=== PATIENT | female | born 1985 | race African-American/Black ===

== ENCOUNTER 2018-12-01 05:08 | Inpatient (IN) | payer OTHER ==
[2018-11-30 08:44] VITALS: BMI 35.6
--- NOTE | 2018-12-01 07:40 | HP ---
Admitting History and Physical - Admission Chief Complaint: Fibroid uterus History of Present Illness: 33 yo Para 0, LMP 11/11/18, with leiomyoma of the uterus, is pre op for abdominal myomectomy. History Source: Patient Limitations to Obtaining History: No Limitations - Past Medical History ...LMP: 11/11/18 ...: No ...Para: 0 - Past Surgical History Past Surgical History: Yes: None - Smoking History Smoking history: Never smoked - Alcohol/Substance Use Hx Alcohol Use: Yes (OCCAS) - Social History Usual Living Arrangement: Yes: Alone History of Recent Travel: No Home Medications - Allergies Allergies/Adverse Reactions: Allergies Allergy/AdvReac Type Severity Reaction Status Date / Time No Known Allergies Allergy Verified 12/01/18 06:56 - Home Medications Home Medications: Ambulatory Orders Oxycodone HCl/Acetaminophen [Percocet 5-325 mg Tablet] 1 - 2 tab PO Q4H PRN #20 tablet MDD 6 12/01/18 Family Disease History - Family Disease History Family History: Unremarkable Review of Systems - Review of Systems Constitutional: reports: No Symptoms Eyes: reports: No Symptoms HENT: reports: No Symptoms Neck: reports: No Symptoms Cardiovascular: reports: No Symptoms Respiratory: reports: No Symptoms Gastrointestinal: reports: No Symptoms Genitourinary: reports: Pain Breasts: reports: No Symptoms Reported Musculoskeletal: reports: No Symptoms Integumentary: reports: No Symptoms Neurological: reports: No Symptoms Psychiatric: reports: No Symptoms Pain Intensity: 3 Physical Examination Vital Signs: Vital Signs Temperature 98.2 F 12/01/18 06:55 Pulse Rate 67 12/01/18 06:55 Respiratory Rate 20 12/01/18 06:55 Blood Pressure 120/68 12/01/18 06:55 O2 Sat by Pulse Oximetry (%) 100 12/01/18 06:50 Constitutional: Yes: Well Nourished Eyes: Yes: Conjunctiva Clear HENT: Yes: Atraumatic Neck: Yes: Supple Cardiovascular: Yes: Regular Rate and Rhythm Respiratory: Yes: Regular Gastrointestinal: Yes: Normal Bowel Sounds Extremities: Yes: WNL Neurological: Yes: Alert, Oriented ...Motor Strength: WNL Psychiatric: Yes: Alert, Oriented Problem List - Problems (1) Leiomyoma of body of uterus Code(s): D25.9 - LEIOMYOMA OF UTERUS, UNSPECIFIED Assessment/Plan Leiomyoma of the uterus Pre op for myomectomy Consent signed Anesthesia to see patient
[2018-12-01] MEDS ORDERED: ceFAZolin SODIUM 1 GM VIAL IVPB ONE ×2 (07:51→10:30)
--- NOTE | 2018-12-01 10:43 | OP ---
Operative Note - Note: Operative Date: 12/01/18 Pre-Operative Diagnosis: Leiomyoma of the uterus Operation: Abdominal hysterectomy Findings: Large fibroid uterus / Adenomyosis Surgeon: Claribel Coats Clinical Documentation Specialist: Denise Friedman Anesthesia: General Specimens Removed: Fibroids / Adenomyosis Estimated Blood Loss (mls): 1,200
[2018-12-01] MEDS ORDERED: IBUPROFEN 800 MG/8 ML IJ IVPB PRN (10:44)
[2018-12-01] MEDS ORDERED: ONDANSETRON 4 MG/2 ML VIAL IVPUSH PRN (10:59)
[2018-12-01] MEDS ORDERED: HYDROmorphone *PCA* 10MG/50ML DISP.SYRIN PCA SCH ×2 (11:00→11:45)
[2018-12-01] MEDS ORDERED: LACTATED RINGERS SOLUTION 1,000 ML IV SCH (11:00)
[2018-12-01] MEDS ORDERED: HYDROmorphone *PCA* 10MG/50ML DISP.SYRIN PCA ONE (11:03)
[2018-12-01] MEDS: HYDROmorphone HCl 2 MG/ML VIAL ONE ×2 (11:05→11:15)
[2018-12-01] MEDS ORDERED: LACTATED RINGERS SOLUTION 1,000 ML/1,000 ML INFUS.BAG IV SCH (11:15)
--- NOTE | 2018-12-01 11:39 | OP ---
Operative Note - Note: Operative Date: 12/01/18 Pre-Operative Diagnosis: Leiomyoma of uterus Operation: Abdominal Myomectomy Post-Operative Diagnosis: Same as Pre-op Surgeon: Claribel Coats Continuous Linter Drier Operator: Denise Friedman Anesthesiologist/PARAPROFESSIONAL AIDE TEACHER: Ricardo Alvarado Anesthesia: General Specimens Removed: uterine fibriods Estimated Blood Loss (mls): 1,300 Drains, Volume Out (mls): 400 ([place]) Blood Volume Replaced (mls): 2 (units PRBC) Fluid Volume Replaced (mls): 3,400 Operative Report Dictated: Yes
--- NOTE | 2018-12-01 11:42 | SURG ---
Surgery Psychological Operations Note Psychological Operations: Denise Friedman PA-C Date of Service: 12/01/18 Diagnosis: Leiomyoma of uterus Procedure: Abdominal myomectomy I was present for the entirety of the operative procedure. For further detail, please refer to operative report. Visit type - Case Type Case Type: Scheduled - Emergency Emergency Visit: No - New patient This patient is new to me today: Yes Date on this admission: 12/01/18
[2018-12-01 14:06] LABS: HEMATOCRIT 28.6 % (32.4-45.2); HEMOGLOBIN 9.6 GM/dL (10.7-15.3); MCH 25.4 pg (25.7-33.7); MCHC 33.6 g/dl (32.0-36.0); MEAN CELL VOLUME 75.5 fl (80-96); MEAN PLT VOLUME 7.8 fl (7.5-11.1); PLATELET COUNT 345 K/MM3 (134-434); RBC 3.79 M/mm3 (3.60-5.2); RDW 19.2 % (11.6-15.6); WHITE BLOOD COUNT 24.7 K/mm3 (4.0-10.0)
[2018-12-01] MEDS: CEFAZOLIN 1 GM/D5W 1 GM/50 ML BAG IVPB SCH (18:12)
[2018-12-01 18:40] LABS: HEMATOCRIT 25.7 % (32.4-45.2); HEMOGLOBIN 8.9 GM/dL (10.7-15.3); MCH 25.9 pg (25.7-33.7); MCHC 34.7 g/dl (32.0-36.0); MEAN CELL VOLUME 74.6 fl (80-96); PLATELET COUNT 274 K/MM3 (134-434); RBC 3.44 M/mm3 (3.60-5.2); RDW 19.3 % (11.6-15.6)
[2018-12-01] MEDS: DEXTROSE 5%-LACTATED RINGERS 1,000 ML IV SCH (21:02)
[2018-12-02] MEDS: CEFAZOLIN 1 GM/D5W 1 GM/50 ML BAG IVPB SCH (02:45)
[2018-12-02] MEDS: DEXTROSE 5%-LACTATED RINGERS 1,000 ML IV SCH (06:33)
[2018-12-02 08:14] LABS: HEMATOCRIT 22.5 % (32.4-45.2); HEMOGLOBIN 7.6 GM/dL (10.7-15.3); MCHC 33.9 g/dl (32.0-36.0); MEAN CELL VOLUME 73.9 fl (80-96); MEAN PLT VOLUME 8.1 fl (7.5-11.1); PLATELET COUNT 266 K/MM3 (134-434); RBC 3.05 M/mm3 (3.60-5.2); RDW 19.4 % (11.6-15.6); WHITE BLOOD COUNT 16.3 K/mm3 (4.0-10.0)
[2018-12-02 08:59] LABS: ALBUMIN 2.8 g/dl (3.4-5.0); ALK PHOS 37 U/L (45-117); ANION GAP 8 MMOL/L (8-16); BILIRUBIN,TOTAL 0.4 mg/dL (0.2-1); BLOOD UREA NITROGEN 7 mg/dL (7-18); CALCIUM 8.4 mg/dL (8.5-10.1); CHLORIDE 105 mmol/L (98-107); CO2 25 mmol/L (21-32); CREATININE 0.8 mg/dL (0.55-1.3); GLUCOSE,RANDOM 132 mg/dL (74-106); POTASSIUM 3.8 mmol/L (3.5-5.1); SGOT/AST 19 U/L (15-37); SGPT/ALT 15 U/L (13-61); SODIUM 139 mmol/L (136-145); TOT PROT 5.4 g/dl (6.4-8.2)
--- NOTE | 2018-12-02 10:02 | PN ---
Progress Note (short form) - Note Progress Note: Post op day#1.S/P Abdominal myomectomy under GA uneventful.Patient stable c/o pain score of 3-4/10 on Dilaudid TUBE HANDLER.So will DC TUBE HANDLER and put patien on PO pain medication.No any anesthesia related problem.Patient DC from the anesthesia care.
--- NOTE | 2018-12-02 11:48 | PN ---
Progress Note (short form) - Note Progress Note: 33 yo Para 0, status post abdominal hysterectomy, seen and evaluated. Doing well. PE : Chest CTA, no rales Abd : Soft, dressing in place, + incision pain. EXT : FROM, NT, no swelling ASS : Status post abdominal myomectomy Stable PO Doxy and Flagyl Analgesia as needed Ambulation D/C Home in am Problem List - Problems (1) Leiomyoma of body of uterus Code(s): D25.9 - LEIOMYOMA OF UTERUS, UNSPECIFIED
[2018-12-02] MEDS: FERROUS SO4 325 MG TABLET (FP) PO SCH ×2 (12:16→19:54)
[2018-12-02] MEDS: oxyCODONE HCL 5 MG TABLET PO PRN ×2 (16:44→20:21)
[2018-12-02] MEDS: DOXYCYCLINE HYCLATE 100 MG CAPSULE PO SCH (17:44)
[2018-12-02] MEDS: metroNIDAZOLE 250 MG TABLET PO SCH (21:54)
[2018-12-03 05:54] VITALS: TEMP 99
--- NOTE | 2018-12-03 08:23 | DS ---
"Physical Examination Vital Signs: Vital Signs Temperature 99 F 12/03/18 05:52 Pulse Rate 100 H 12/03/18 05:52 Respiratory Rate 20 12/03/18 05:52 Blood Pressure 116/68 12/03/18 05:52 O2 Sat by Pulse Oximetry (%) 98 12/01/18 21:00 Constitutional: Yes: Well Nourished Eyes: Yes: Conjunctiva Clear HENT: Yes: Atraumatic Neck: Yes: Supple Cardiovascular: Yes: Regular Rate and Rhythm Respiratory: Yes: Regular Gastrointestinal: Yes: Normal Bowel Sounds Wound/Incision: Yes: Clean/Dry, Steri Strips (intact) Neurological: Yes: Alert, Oriented ...Motor Strength: WNL Psychiatric: Yes: Alert, Oriented Labs: CBC, BMP 12/02/18 07:30 12/02/18 07:30 Discharge Summary Reason For Visit: LEIOMYOMA OF UTERUS Current Active Problems Leiomyoma of body of uterus (Acute) Status post myomectomy (Acute) Procedures: Principal: Abdominal myomectomy Hospital Course: Patient is status post myomectomy. She received 2 units of blood in the operating room. Post op, she continued the antibiotic but refused additional units of blood. Condition: Good - Instructions Diet, Activity, Other Instructions: Director Employee Safety And Health discharge instructions Physical activity Resume your normal everyday activity as tolerated no heavy lifting or exercise until seen by your surgeon. You may walk unlimited young of and climb stairs. You may resume driving the car when you feel safe and comfortable behind the wheel. No sexual activity as instructed by your surgeon. Wound care If you have a bandage, leave it on, and keep dry for 72 hours. After that time discard the outer bandage and shower but do not submerge the incisions. If they are tapes on the skin under the out of bandage leave them in place, you can shower with them on. They will peel off in the next 7 to 10 days. Do Not Peel them off. Do not apply ointments or lotions to incision. Diet There are no dietary restrictions. Eat healthy, high-fiber foods. Drink 6 to 8 glasses of liquid each day. This will assist in keeping your bowels are regular. Pain management You may take Tylenol or acetaminophen or Ibuprofen (for example, Motrin, Advil etc.) from my pain prescription medication is ordered should be taken as prescribed for moderate to severe pain. Call Dr. Coats for any of the following: Severe pain not relieved by medication Fever of 101 or higher Excessive bleeding or drainage on dressing Inability to urinate If you experience any chest pain or shortness of breath please seek emergency treatment immediately. Call the office to confirm your post op appointment. [place] prescription monitoring program report was requested by: Denise Friend | Reference #: [id number] Disposition: HOME - Home Medications Comprehensive Discharge Medication List: Ambulatory Orders Oxycodone HCl/Acetaminophen [Percocet 5-325 mg Tablet] 1 - 2 tab PO Q4H PRN #20 tablet MDD 6 12/01/18"
[2018-12-03] MEDS: metroNIDAZOLE 250 MG TABLET PO SCH (09:15)
[2018-12-03] MEDS: DOXYCYCLINE HYCLATE 100 MG CAPSULE PO SCH (09:15)
[2018-12-03] MEDS: FERROUS SO4 325 MG TABLET (FP) PO SCH (09:16)
[2018-12-03 10:25] VITALS: BP 126/79; PULSE 107
--- NOTE | 2018-12-04 17:12 | PATH ---
Surgical Pathology Report Patient Name: ZOILA YOUNG [facility]. Rec. #: [id number] /Age/Gender: 1985 (Age: 33) / F Account: [id number] Location: [address] [place] [address]/[facility] Taken: 12/01/2018 Received: 12/01/2018 Reported: 12/04/2018 Physicians: Claribel Coats M.D. Specimen(s) Received FIBROID Clinical History Abdominal myoma, fibroid uterus Final Diagnosis FIBRIODS/'ADENOMYOSIS', ABDOMINAL MYOMECTOMY: 874 G LEIOMYOMA(TA) WITH FOCAL DEGENERATIVE CHANGES. Electronically Signed Aleida Parker M.D. Gross Description Received in formalin labeled "fibroids/adenomyosis," is an 874 g aggregate of 2 nodules measuring 6.3 and 13.0 cm in greatest dimension, consistent with fibroids. Sectioning of the larger nodule reveals foci of degeneration. The remaining parenchyma is wade and rubbery with whorled architecture. Senior It Security Analyst sections are submitted in 8 cassettes as follows: 1-3-smaller nodule; 4-8-larger nodule. DL/12/01/2018 saudi/12/01/2018
--- NOTE | 2018-12-07 12:27 | OP ---
DATE OF OPERATION: 12/01/2018 PREOPERATIVE DIAGNOSIS: Leiomyoma of the uterus. POSTOPERATIVE DIAGNOSIS: Leiomyoma of the uterus and adenomyosis. SURGEON: Claribel Coats MD NAIL TECHNICIAN: WANG Fairbanks PROCEDURE: Abdominal myomectomy. ANESTHESIA: General. COMPLICATIONS: None. ESTIMATED BLOOD LOSS: 1200 mL DESCRIPTION OF PROCEDURE: Patient was taken to the operating room where general anesthesia was administered. Patient was then prepped and draped in proper sterile fashion. A Pfannenstiel skin incision was made and carried down through the underlying layer of fascia. The fascia was incised in the midline and extended laterally. The superior aspect of the fascial incision was then grasped with a Honorio clamp, elevated, and the rectus muscle dissected off bluntly. Attention was then turned to the anterior aspect of the fascial incision, which in a similar fashion was then grasped with a Honorio clamp, elevated, and the rectus muscle dissected off bluntly. The rectus muscle was then in the midline. The peritoneum was then identified and entered sharply with Metzenbaum scissors. The pelvis was then examined. A significant enlarged uterus was found, and looked like an 18-week size uterus was found. The ovaries were found to be normal. The larger fibroid was found at the fundus, and there was one more in the posterior right side of the uterus. Then using 2 sweethearts, the uterus was cooled and exteriorized, and an incision was made over the uterus, and using the Bovie cautery the fibroid was then from the wall of the uterus. A single adenomyosis noted also. After dissecting the fibroid from the wall of the uterus, the space was then closed and the endometrium was noted, and then it was put together. The endometrium was put together using 2-0 Biosyn. Then the spaces were closed and the uterus was then finally closed using 0 Biosyn and 2-0 Biosyn. Another incision was made on the posterior right side of the uterus to remove the 4-cm fibroid. Also, using the Bovie cautery and the Metzenbaum scissors, it was dissected off the wall of the uterus. This incision also was closed using 2-0 Vicryl and 2-0 Biosyn. The pelvis was then completely irrigated. was placed over the incision. The peritoneum was closed using 2-0 Biosyn. The fascia was reapproximated using 0 Vicryl in a running fashion, and the skin was closed in a subcuticular fashion using 3-0 Vicryl. Patient tolerated the procedure well. Patient was then taken to PACU in stable condition. PATHOLOGY: Fibroid and adenomyosis. CLARIBEL COATS M.D. [id number]
== END 2018-12-03 10:42 | disposition home or self-care (01) | DRG 519 ==
LOC: JSAMEDAYSX 05:08 → J6S 16:18
PROVIDERS: ADMIT Obstetrics & Gynecology; ATTEND Obstetrics & Gynecology
PROC: 0UB90ZZ Excision of Uterus, Open Approach (ICD-10-PCS; principal; 2018-12-01 07:30)
DX: D25.9 Leiomyoma of uterus, unspecified (principal); N80.0 Endometriosis of uterus
CPT/HCPCS: 36415; 36430; 36511; 80053; 84703; 85027; 86850; 86900; 86901; 86922; 88305-TC; 94760; P9038; P9058